=== PATIENT | male | born 2005 | race American Indian/Alaskan Native ===

== ENCOUNTER 2025-01-27 15:45 | Emergency (ER) | payer SELFPAY | END 2025-01-27 16:43 | disposition left against medical advice (07) | LOC: JP.ED 15:45 | DX: Z53.21 Procedure and treatment not carried out due to patient leaving prior to being seen by health care provider (principal) ==

== ENCOUNTER 2025-01-27 17:43 | Emergency (ER) | payer SELFPAY ==
[2025-01-27] MEDS: Proparacaine 0.5% Ophth Soln 15 ML Bottle EYEBOTH STA (19:01)
[2025-01-27] MEDS: Ketorolac 30 MG/ML SDV IM ONE (19:25)
[2025-01-27] MEDS: LORazepam 2 MG/ML SDV IM ONE (19:25)
== END 2025-01-27 19:55 | disposition home or self-care (01) ==
LOC: JP.ED 17:43
DX: H16.001 Unspecified corneal ulcer, right eye (principal)
CPT/HCPCS: 96372; 99283; A9270-GY; J1885